=== PATIENT | male | born 1955 | race Caucasian/White ===

== ENCOUNTER 2018-02-16 10:24 | Inpatient (IN) | payer MEDICARE, OTHER ==
[~2018-02-16] VITALS: Ht 175.3 cm; Wt 139.4 kg
[2018-02-16 10:59] LABS: BASOPHILS % (AUTO) 0.3 % (0-1); EOSINOPHILS % (AUTO) 0.3 % (0-6); HEMOGLOBIN 12.4 g/dl (14.0-17.9); LYMPHOCYTES # (AUTO) 1.2 X10'3 (1.1-4.8); LYMPHOCYTES % (AUTO) 17.1 % (21-51); MEAN CORPUSCULAR HEMOGLOBIN 26.4 PG (27.0-31.0); MEAN CORPUSCULAR HGB CONC 32.6 % (33.0-36.5); MEAN PLATELET VOLUME 10.2 FL (7.4-10.4); MONOCYTES # (AUTO) 0.4 X10'3 (0-0.9); MONOCYTES % (AUTO) 6.3 % (2-12); NEUTROPHILS # (AUTO) 5.4 X10'3 (1.8-7.7); PLATELET COUNT 207 X10'3 (140-440); RED BLOOD COUNT 4.69 X10'6 (4.70-6.10); RED CELL DISTRIBUTION WIDTH 20.5 % (11.5-14.5); WHITE BLOOD COUNT 7.1 X10'3 (4.5-11.0)
[2018-02-16 11:09] LABS: PARTIAL THROMBOPLASTIN TIME 25 SECONDS (22-32); PROTHROMBIN TIME 10.7 SECONDS (9.0-12.0)
[2018-02-16 11:14] LABS: ALANINE AMINOTRANSFERASE 35 U/L (12-78); ALBUMIN 3.5 G/DL (3.4-5.0); ALBUMIN/GLOBULIN RATIO 0.9 (1.1-1.5); ALKALINE PHOSPHATASE 118 IU/L (46-116); ANION GAP 8 (8-16); ASPARTATE AMINO TRANSFERASE 21 U/L (10-37); BILIRUBIN,TOTAL 0.5 MG/DL (0.1-1.0); BLOOD UREA NITROGEN 11 MG/DL (7-18); BUN/CREATININE RATIO 15.3 (5.4-32.0); CALCIUM 8.7 MG/DL (8.5-10.1); CHLORIDE 100 MMOL/L (99-107); CREATININE 0.72 MG/DL (0.60-1.10); GLUCOSE 127 MG/DL (70-104); SODIUM 135 MMOL/L (135-145); TOTAL CARBON DIOXIDE 26.7 MMOL/L (24-32); TOTAL PROTEIN 7.2 G/DL (6.4-8.2); eGFR > 90 ML/MIN
[2018-02-16 11:15] LABS: ANISOCYTOSIS 3+; LARGE PLATELETS FEW; MICROCYTOSIS 1+; PLATELET ESTIMATE NORMAL
[2018-02-16 11:16] LABS: ELLIPTOCYTES FEW
[2018-02-16] MEDS ORDERED: furosemide 10 MG/1 ML 10ml inj IV ONE (12:20)
[2018-02-16] MEDS ORDERED: docusate sod 100mg capsule PO PRN (14:30)
[2018-02-16] MEDS ORDERED: acetaminophen 325mg tablet PO PRN ×2 (14:30)
[2018-02-16] MEDS ORDERED: magnesium 1gm/100ml D5W IVPB 100 ML IV PRN (14:30)
[2018-02-16] MEDS ORDERED: ondansetron/PF 4mg/2ml inj IV PRN (14:30)
[2018-02-16] MEDS ORDERED: heparin 10,000 units/1 ML INJ IV ONE (14:30)
[2018-02-16] MEDS ORDERED: mag hydrox/Alum hydrox/simeth 30ml oral suspension PO PRN (14:30)
[2018-02-16] MEDS ORDERED: morphine 2 MG/ML inj. syringe IV PRN ×2 (14:30)
[2018-02-16] MEDS ORDERED: magnesium 4gm in 100ml NS 100 ML IV PRN (14:30)
[2018-02-16] MEDS ORDERED: potassium Cl 20 mEq SR tablet PO PRN ×2 (14:30)
[2018-02-16] MEDS ORDERED: potassium Cl 40MEQ/NS 500ml 500 ML IV PRN ×2 (14:30)
[2018-02-16] MEDS ORDERED: DOCU250C4 PO (16:05)
[2018-02-16] MEDS ORDERED: CARSR60C PO (16:05)
[2018-02-16] MEDS ORDERED: SIMV40TA PO (16:05)
[2018-02-16] MEDS ORDERED: SUCR1TAB PO (16:05)
[2018-02-16] MEDS ORDERED: PANT40TA4 PO (16:05)
[2018-02-16] MEDS ORDERED: OMEG1CAP13 PO (16:05)
[2018-02-16] MEDS ORDERED: POTA10TA10 PO (16:05)
[2018-02-16] MEDS ORDERED: FURO-150 PO (16:05)
[2018-02-16] MEDS ORDERED: FERR324T2 PO (16:05)
[2018-02-16] MEDS ORDERED: LISI-600 PO (16:05)
[2018-02-16] MEDS ORDERED: RANI300C PO (16:05)
[2018-02-16] MEDS ORDERED: ALB0.5UD IH (16:05)
[2018-02-16] MEDS ORDERED: HYDR12.5 PO (16:05)
[2018-02-16 16:57] VITALS: BP 137/56
[2018-02-16 16:57] LABS: INR 1.1 INR; PARTIAL THROMBOPLASTIN TIME 39 SECONDS (22-32); PROTHROMBIN TIME 11.4 SECONDS (9.0-12.0)
[2018-02-16 17:31] LABS: BASOPHILS # (AUTO) 0.1 X10'3 (0-0.2); BASOPHILS % (AUTO) 0.7 % (0-1); EOSINOPHILS % (AUTO) 0.4 % (0-6); HEMOGLOBIN 12.8 g/dl (14.0-17.9); LYMPHOCYTES # (AUTO) 2.4 X10'3 (1.1-4.8); LYMPHOCYTES % (AUTO) 25.9 % (21-51); MEAN CORPUSCULAR HEMOGLOBIN 26.1 PG (27.0-31.0); MEAN CORPUSCULAR HGB CONC 32.7 % (33.0-36.5); MEAN CORPUSCULAR VOLUME 79.7 FL (78-98); MEAN PLATELET VOLUME 10.4 FL (7.4-10.4); MONOCYTES # (AUTO) 0.8 X10'3 (0-0.9); MONOCYTES % (AUTO) 8.1 % (2-12); NEUTROPHILS % (AUTO) 64.9 % (42-75); PLATELET COUNT 210 X10'3 (140-440); WHITE BLOOD COUNT 9.3 X10'3 (4.5-11.0)
[2018-02-16] MEDS: diltiazem SR 60mg capsule (twice daily) PO SCH (17:34)
[2018-02-16 17:54] LABS: ANISOCYTOSIS 3+; ELLIPTOCYTES 1+; HYPOCHROMASIA 1+; LARGE PLATELETS FEW; PLATELET ESTIMATE NORMAL; POIKILOCYTOSIS 1+; POLYCHROMASIA 1+
[2018-02-16 18:00] VITALS: BP 146/49
[2018-02-16] MEDS: sucralfate 1 gm tablet PO SCH (20:04)
[2018-02-16] MEDS: furosemide 10 MG/1 ML 10ml inj IV SCH (20:06)
[2018-02-16] MEDS ORDERED: atorvastatin 20mg tablet PO SCH (21:00)
[2018-02-16] MEDS ORDERED: non-formulary drug (Simvastatin (Zocor) 1 TAB) PO SCH (21:00)
[2018-02-16 22:00] VITALS: BP 127/48
[2018-02-16] MEDS: heparin 10,000 units/1 ML INJ IV PRN (22:20)
[2018-02-17 02:00] VITALS: BP 112/43
[2018-02-17 05:36] LABS: BASOPHILS % (AUTO) 0.3 % (0-1); EOSINOPHILS # (AUTO) 0.2 X10'3 (0-0.9); EOSINOPHILS % (AUTO) 1.7 % (0-6); HEMATOCRIT 38.5 % (42.0-52.0); HEMOGLOBIN 12.7 g/dl (14.0-17.9); LYMPHOCYTES # (AUTO) 2.7 X10'3 (1.1-4.8); LYMPHOCYTES % (AUTO) 28.8 % (21-51); MEAN CORPUSCULAR HEMOGLOBIN 26.2 PG (27.0-31.0); MEAN CORPUSCULAR HGB CONC 32.9 % (33.0-36.5); MEAN CORPUSCULAR VOLUME 79.8 FL (78-98); MEAN PLATELET VOLUME 10.4 FL (7.4-10.4); MONOCYTES # (AUTO) 0.8 X10'3 (0-0.9); MONOCYTES % (AUTO) 8.9 % (2-12); NEUTROPHILS # (AUTO) 5.6 X10'3 (1.8-7.7); NEUTROPHILS % (AUTO) 60.3 % (42-75); PLATELET COUNT 228 X10'3 (140-440); RED BLOOD COUNT 4.83 X10'6 (4.70-6.10); RED CELL DISTRIBUTION WIDTH 20.2 % (11.5-14.5); WHITE BLOOD COUNT 9.3 X10'3 (4.5-11.0)
[2018-02-17 06:00] VITALS: BP 124/57
[2018-02-17 06:16] LABS: ALANINE AMINOTRANSFERASE 34 U/L (12-78); ALBUMIN 3.5 G/DL (3.4-5.0); ALBUMIN/GLOBULIN RATIO 0.9 (1.1-1.5); ALKALINE PHOSPHATASE 126 IU/L (46-116); ANION GAP 8 (8-16); ANISOCYTOSIS 2+; ASPARTATE AMINO TRANSFERASE 30 U/L (10-37); BILIRUBIN,TOTAL 0.7 MG/DL (0.1-1.0); BLOOD UREA NITROGEN 14 MG/DL (7-18); BUN/CREATININE RATIO 17.9 (5.4-32.0); CALCIUM 9.5 MG/DL (8.5-10.1); CHLORIDE 97 MMOL/L (99-107); CHOL/HDL RATIO 5.2 (0.00-4.99); CHOLESTEROL 176 MG/DL (0-200); CREATININE 0.78 MG/DL (0.60-1.10); GLUCOSE 103 MG/DL (70-104); HDL CHOLESTEROL 34 MG/DL (35-60); LARGE PLATELETS FEW; LDL CHOLESTEROL 120 MG/DL (50-100); MAGNESIUM 1.7 MG/DL (1.5-2.4); MICROCYTOSIS 1+; PLATELET ESTIMATE NORMAL; POTASSIUM 3.6 MMOL/L (3.5-5.1); SODIUM 135 MMOL/L (135-145); TOTAL CARBON DIOXIDE 30.4 MMOL/L (24-32); TOTAL PROTEIN 7.5 G/DL (6.4-8.2); TRIGLYCERIDES 139 MG/DL (20-135); eGFR > 90 ML/MIN
[2018-02-17] MEDS: K and/or MAG REPLACEMENT MC SCH (06:40)
[2018-02-17] MEDS: heparin 10,000 units/1 ML INJ IV PRN (06:53)
[2018-02-17] MEDS: furosemide 10 MG/1 ML 10ml inj IV SCH ×2 (07:45→20:03)
[2018-02-17] MEDS: sucralfate 1 gm tablet PO SCH ×2 (07:46→20:03)
[2018-02-17] MEDS: omega-3 acid ethyl esters 1GM capsule PO SCH (07:46)
[2018-02-17] MEDS: diltiazem SR 60mg capsule (twice daily) PO SCH (07:46)
[2018-02-17] MEDS: docusate sod 250mg capsule PO SCH (07:46)
[2018-02-17] MEDS: famotidine 20mg tablet PO SCH (07:46)
[2018-02-17] MEDS: enoxaparin 40mg/0.4ml syringe SUBCUT SCH (07:47)
[2018-02-17] MEDS ORDERED: non-formulary drug (Ranitidine HCl 1 CAP) PO SCH (08:00)
[2018-02-17] MEDS ORDERED: FATTY ACIDS PO SCH (08:00)
[2018-02-17] MEDS ORDERED: OMEGA PO SCH (08:00)
[2018-02-17] MEDS ORDERED: FISH OIL PO SCH (08:00)
[2018-02-17 11:00] VITALS: BP 113/47
[2018-02-17] MEDS ORDERED: nitroGLYCERIN 0.4mg SUBLingual tab SL PRN (14:25)
[2018-02-17] MEDS: aspirin 81mg tablet.DR PO SCH (14:44)
[2018-02-17] MEDS: folic acid 1mg tablet PO SCH (14:44)
[2018-02-17 16:00] VITALS: BP 108/56
[2018-02-17] MEDS: potassium Cl 20 mEq SR tablet PO SCH (16:34)
[2018-02-17 19:00] VITALS: BP 107/43
[2018-02-17] MEDS: thiamine 100mg tablet PO SCH (20:03)
[2018-02-17] MEDS: atorvastatin 20mg tablet PO SCH (20:03)
[2018-02-17 23:00] VITALS: BP 101/41
[2018-02-18] VITALS (14 sets, daily range): BP systolic 108–168; BP diastolic 43–86
[2018-02-18 05:20] LABS: BASOPHILS % (AUTO) 0.5 % (0-1); EOSINOPHILS # (AUTO) 0.1 X10'3 (0-0.9); HEMATOCRIT 34.5 % (42.0-52.0); HEMOGLOBIN 11.4 g/dl (14.0-17.9); LYMPHOCYTES # (AUTO) 2.4 X10'3 (1.1-4.8); LYMPHOCYTES % (AUTO) 32.2 % (21-51); MEAN CORPUSCULAR HEMOGLOBIN 26.3 PG (27.0-31.0); MEAN CORPUSCULAR VOLUME 79.7 FL (78-98); MEAN PLATELET VOLUME 10.4 FL (7.4-10.4); MONOCYTES # (AUTO) 0.8 X10'3 (0-0.9); MONOCYTES % (AUTO) 10.8 % (2-12); NEUTROPHILS % (AUTO) 54.5 % (42-75); PLATELET COUNT 202 X10'3 (140-440); RED BLOOD COUNT 4.33 X10'6 (4.70-6.10); RED CELL DISTRIBUTION WIDTH 20.5 % (11.5-14.5); WHITE BLOOD COUNT 7.4 X10'3 (4.5-11.0)
[2018-02-18 05:31] LABS: ALANINE AMINOTRANSFERASE 32 U/L (12-78); ALBUMIN 3.1 G/DL (3.4-5.0); ALBUMIN/GLOBULIN RATIO 0.9 (1.1-1.5); ALKALINE PHOSPHATASE 102 IU/L (46-116); ANION GAP 7 (8-16); ASPARTATE AMINO TRANSFERASE 23 U/L (10-37); BILIRUBIN,TOTAL 0.6 MG/DL (0.1-1.0); BLOOD UREA NITROGEN 15 MG/DL (7-18); BUN/CREATININE RATIO 20.3 (5.4-32.0); CHLORIDE 100 MMOL/L (99-107); CREATININE 0.74 MG/DL (0.60-1.10); GLUCOSE 89 MG/DL (70-104); MAGNESIUM 1.9 MG/DL (1.5-2.4); POTASSIUM 3.5 MMOL/L (3.5-5.1); SODIUM 137 MMOL/L (135-145); TOTAL CARBON DIOXIDE 30.3 MMOL/L (24-32); TOTAL PROTEIN 6.5 G/DL (6.4-8.2); eGFR > 90 ML/MIN
[2018-02-18 06:57] LABS: ANISOCYTOSIS 3+; PLATELET ESTIMATE NORMAL
[2018-02-18 06:58] LABS: ELLIPTOCYTES 1+
[2018-02-18] MEDS: potassium Cl 20 mEq SR tablet PO SCH ×2 (07:42→17:46)
[2018-02-18] MEDS: famotidine 20mg tablet PO SCH (07:42)
[2018-02-18] MEDS: folic acid 1mg tablet PO SCH (07:42)
[2018-02-18] MEDS: docusate sod 250mg capsule PO SCH (07:42)
[2018-02-18] MEDS: sucralfate 1 gm tablet PO SCH ×2 (07:43→20:50)
[2018-02-18] MEDS: aspirin 81mg tablet.DR PO SCH (07:43)
[2018-02-18] MEDS: diltiazem SR 60mg capsule (twice daily) PO SCH (07:43)
[2018-02-18] MEDS: thiamine 100mg tablet PO SCH ×2 (07:43→20:50)
[2018-02-18] MEDS: furosemide 10 MG/1 ML 10ml inj IV SCH ×2 (07:44→20:50)
[2018-02-18] MEDS: omega-3 acid ethyl esters 1GM capsule PO SCH (07:59)
[2018-02-18] MEDS: enoxaparin 40mg/0.4ml syringe SUBCUT SCH (08:00)
[2018-02-18] MEDS: K and/or MAG REPLACEMENT MC SCH (08:00)
[2018-02-18] MEDS: ipratropium/albuterol 3ml nebule NEB PRN ×2 (11:33→15:27)
[2018-02-18] MEDS ORDERED: LIDOcaine 1% 30ml preserv. free vial ONE (17:50)
[2018-02-18] MEDS ORDERED: iohexol 350MG/ML 100ml bottle IV ONE (17:50)
[2018-02-18] MEDS ORDERED: heparin 1,000unit/ml 10ml vial 10 ML ONE (17:57)
[2018-02-18] MEDS ORDERED: verapamil 2.5 mg/ml inj IV ONE (17:57)
[2018-02-18] MEDS ORDERED: nitroGLYCERIN-Tridil 50MG/D5W 250 ML IV ONE (17:57)
[2018-02-18] MEDS ORDERED: fentaNYL/PF 50MCG/1 ML 2ML syringe ONE (18:11)
[2018-02-18] MEDS ORDERED: midazolam 2 mg/2 ml injection ONE (18:12)
[2018-02-18] MEDS ORDERED: HYDROcodone/acetaminophen 5mg/325mg tablet PO PRN (19:25)
[2018-02-18] MEDS ORDERED: proCHLORperazine 10 MG/2 ml inj IV PRN (19:25)
[2018-02-18] MEDS ORDERED: HYDROcodone/acetaminophen 10/325mg tab PO PRN (19:25)
[2018-02-18] MEDS: atorvastatin 20mg tablet PO SCH (20:50)
[2018-02-19 03:00] VITALS: BP 119/43
[2018-02-19] MEDS ORDERED: MESSAGE TO NURSING PO ONE ×2 (05:30→07:05)
[2018-02-19 05:44] LABS: BASOPHILS % (AUTO) 0.5 % (0-1); EOSINOPHILS # (AUTO) 0.1 X10'3 (0-0.9); EOSINOPHILS % (AUTO) 1.9 % (0-6); HEMATOCRIT 33.7 % (42.0-52.0); HEMOGLOBIN 10.9 g/dl (14.0-17.9); LYMPHOCYTES # (AUTO) 2.5 X10'3 (1.1-4.8); LYMPHOCYTES % (AUTO) 34.5 % (21-51); MEAN CORPUSCULAR HEMOGLOBIN 25.7 PG (27.0-31.0); MEAN CORPUSCULAR HGB CONC 32.3 % (33.0-36.5); MEAN CORPUSCULAR VOLUME 79.6 FL (78-98); MEAN PLATELET VOLUME 9.9 FL (7.4-10.4); MONOCYTES # (AUTO) 0.8 X10'3 (0-0.9); NEUTROPHILS # (AUTO) 3.8 X10'3 (1.8-7.7); NEUTROPHILS % (AUTO) 52.1 % (42-75); PLATELET COUNT 197 X10'3 (140-440); RED BLOOD COUNT 4.23 X10'6 (4.70-6.10); RED CELL DISTRIBUTION WIDTH 20.1 % (11.5-14.5); WHITE BLOOD COUNT 7.3 X10'3 (4.5-11.0)
[2018-02-19 06:00] VITALS: BP 158/50
[2018-02-19 06:00] LABS: ALANINE AMINOTRANSFERASE 33 U/L (12-78); ALBUMIN 3.1 G/DL (3.4-5.0); ALBUMIN/GLOBULIN RATIO 0.9 (1.1-1.5); ALKALINE PHOSPHATASE 99 IU/L (46-116); ANION GAP 7 (8-16); ASPARTATE AMINO TRANSFERASE 26 U/L (10-37); BILIRUBIN,TOTAL 0.4 MG/DL (0.1-1.0); BLOOD UREA NITROGEN 17 MG/DL (7-18); BUN/CREATININE RATIO 22.4 (5.4-32.0); CALCIUM 8.9 MG/DL (8.5-10.1); CHLORIDE 102 MMOL/L (99-107); CHOL/HDL RATIO 4.8 (0.00-4.99); CHOLESTEROL 135 MG/DL (0-200); CREATININE 0.76 MG/DL (0.60-1.10); GLUCOSE 91 MG/DL (70-104); HDL CHOLESTEROL 28 MG/DL (35-60); LDL CHOLESTEROL 92 MG/DL (50-100); MAGNESIUM 1.9 MG/DL (1.5-2.4); POTASSIUM 3.8 MMOL/L (3.5-5.1); SODIUM 138 MMOL/L (135-145); TOTAL CARBON DIOXIDE 29.5 MMOL/L (24-32); TOTAL PROTEIN 6.4 G/DL (6.4-8.2); TRIGLYCERIDES 100 MG/DL (20-135); eGFR > 90 ML/MIN
[2018-02-19] MEDS ORDERED: dextrose 50%-water 50ml dispensing syringe IV PRN (07:05)
[2018-02-19 07:36] LABS: ANISOCYTOSIS 2+; PLATELET ESTIMATE NORMAL
[2018-02-19 07:37] LABS: ELLIPTOCYTES 2+; MICROCYTOSIS 1+
[2018-02-19 07:38] LABS: POIKILOCYTOSIS FEW
[2018-02-19 07:47] LABS: PARTIAL THROMBOPLASTIN TIME 26 SECONDS (22-32); PROTHROMBIN TIME 10.6 SECONDS (9.0-12.0)
[2018-02-19] MEDS: omega-3 acid ethyl esters 1GM capsule PO SCH (07:51)
[2018-02-19] MEDS: folic acid 1mg tablet PO SCH (07:51)
[2018-02-19] MEDS: aspirin 81mg tablet.DR PO SCH (07:51)
[2018-02-19] MEDS: sucralfate 1 gm tablet PO SCH ×2 (07:51→20:43)
[2018-02-19] MEDS: docusate sod 250mg capsule PO SCH (07:51)
[2018-02-19] MEDS: diltiazem SR 60mg capsule (twice daily) PO SCH (07:52)
[2018-02-19] MEDS: potassium Cl 20 mEq SR tablet PO SCH ×2 (07:52→17:43)
[2018-02-19] MEDS: famotidine 20mg tablet PO SCH (07:52)
[2018-02-19] MEDS: thiamine 100mg tablet PO SCH ×2 (07:52→20:43)
[2018-02-19] MEDS: furosemide 10 MG/1 ML 10ml inj IV SCH ×2 (07:54→20:43)
[2018-02-19] MEDS: K and/or MAG REPLACEMENT MC SCH (08:00)
[2018-02-19] MEDS: insulin Lispro (HumaLOG) vial - multi-dose SQ SCH ×3 (09:00→18:00)
[2018-02-19 11:00] VITALS: BP 126/49
[2018-02-19 15:00] VITALS: BP 141/78
[2018-02-19 18:20] LABS: ABG BASE EXCESS 1.3 mmol/L (-2.0-3.0); ABG HCO3 25.6 mmol/L (22.0-26.0); ABG PCO2 (T) 39.7 mmHg (35.0-48.0); ABG PH (T) 7.428 (7.350-7.450); FCOHb 0.3 % (0.5-1.5); FMetHb 0.2 % (0.3-1.12); FO2Hb 93.5 % (94-100); TOTAL HEMOGLOBIN 12.2 G/dl (14.0-18.0)
[2018-02-19 19:00] VITALS: BP 137/62
[2018-02-19] MEDS: atorvastatin 20mg tablet PO SCH (20:43)
[2018-02-19 23:00] VITALS: BP 124/40
[2018-02-20] VITALS (18 sets, daily range): BP systolic 90–130; BP diastolic 53–67
[2018-02-20] MEDS ORDERED: MESSAGE TO NURSING PO ONE ×3 (01:30→05:30)
[2018-02-20] MEDS ORDERED: ceFAZolin inj. 3,000 MG in normal saline 100ml IV soln 100 ML IV ONE (05:30)
[2018-02-20] MEDS ORDERED: ringers solution, lacted 1,000 ML IV SCH (05:30)
[2018-02-20] MEDS ORDERED: mupirocin 2% nasal ointment 1gm UD NS SCH ×2 (06:00→08:00)
[2018-02-20] MEDS ORDERED: magnesium sulf 1 GM/2 ML ONE (06:00)
[2018-02-20] MEDS ORDERED: LIDOcaine 2% (20 mg/ml) 5ml cardiac syringe ONE (06:00)
[2018-02-20] MEDS ORDERED: aminophylline 250mg/10ml inj. IV ONE ×2 (06:00→06:59)
[2018-02-20] MEDS ORDERED: heparin 10,000 units/1 ML INJ ONE (06:00)
[2018-02-20] MEDS ORDERED: LORazepam 2 mg/ml vial IV ONE (06:00)
[2018-02-20] MEDS ORDERED: calcium chloride 100 MG/1 ML inj IV ONE (06:00)
[2018-02-20] MEDS ORDERED: potassium Cl 2 mEq/ml inj IV ONE (06:00)
[2018-02-20] MEDS ORDERED: phenylephrine 10mg/ml inj. ONE (06:00)
[2018-02-20] MEDS ORDERED: heparin 1,000 units/ml 10ml inj ONE (06:00)
[2018-02-20] MEDS ORDERED: famotidine 20mg tablet PO ONE (06:00)
[2018-02-20] MEDS ORDERED: albumin (human) 25% 100 ML IV solution IV ONE (06:00)
[2018-02-20] MEDS ORDERED: sodium bicarbonate (8.4%) 1 mEq/ml syringe ONE (06:00)
[2018-02-20 06:11] LABS: BASOPHILS % (AUTO) 0.4 % (0-1); EOSINOPHILS # (AUTO) 0.1 X10'3 (0-0.9); EOSINOPHILS % (AUTO) 1.3 % (0-6); HEMATOCRIT 35.4 % (42.0-52.0); HEMOGLOBIN 11.8 g/dl (14.0-17.9); LYMPHOCYTES # (AUTO) 1.8 X10'3 (1.1-4.8); MEAN CORPUSCULAR HEMOGLOBIN 26.3 PG (27.0-31.0); MEAN CORPUSCULAR HGB CONC 33.2 % (33.0-36.5); MEAN CORPUSCULAR VOLUME 79.3 FL (78-98); MEAN PLATELET VOLUME 10.3 FL (7.4-10.4); MONOCYTES # (AUTO) 0.7 X10'3 (0-0.9); MONOCYTES % (AUTO) 9.5 % (2-12); NEUTROPHILS # (AUTO) 4.6 X10'3 (1.8-7.7); NEUTROPHILS % (AUTO) 63.8 % (42-75); PLATELET COUNT 211 X10'3 (140-440); RED BLOOD COUNT 4.46 X10'6 (4.70-6.10); RED CELL DISTRIBUTION WIDTH 19.5 % (11.5-14.5); WHITE BLOOD COUNT 7.2 X10'3 (4.5-11.0)
[2018-02-20 06:22] LABS: INR 1.1 INR; PARTIAL THROMBOPLASTIN TIME 26 SECONDS (22-32); PROTHROMBIN TIME 10.9 SECONDS (9.0-12.0)
[2018-02-20 06:40] LABS: ALANINE AMINOTRANSFERASE 44 U/L (12-78); ALBUMIN 3.4 G/DL (3.4-5.0); ALBUMIN/GLOBULIN RATIO 0.9 (1.1-1.5); ALKALINE PHOSPHATASE 115 IU/L (46-116); ANION GAP 8 (8-16); ASPARTATE AMINO TRANSFERASE 37 U/L (10-37); BILIRUBIN,TOTAL 0.5 MG/DL (0.1-1.0); BLOOD UREA NITROGEN 14 MG/DL (7-18); BUN/CREATININE RATIO 19.2 (5.4-32.0); CHLORIDE 100 MMOL/L (99-107); CREATININE 0.73 MG/DL (0.60-1.10); GLUCOSE 98 MG/DL (70-104); MAGNESIUM 1.7 MG/DL (1.5-2.4); POTASSIUM 3.9 MMOL/L (3.5-5.1); SODIUM 136 MMOL/L (135-145); TOTAL CARBON DIOXIDE 27.8 MMOL/L (24-32); TOTAL PROTEIN 7.1 G/DL (6.4-8.2); eGFR > 90 ML/MIN
[2018-02-20] MEDS ORDERED: metoprolol tartrate 12.5mg (1/2 tablet) PO ONE (06:50)
[2018-02-20] MEDS ORDERED: SUFENTANIL CITRATE 50 MCG/ML 2ml ampule IV ONE (06:56)
[2018-02-20] MEDS ORDERED: MIDAZolam 1mg/ml 10ml vial ONE (06:56)
[2018-02-20] MEDS ORDERED: rocuronium 10mg/ml inj IV ONE ×2 (06:59)
[2018-02-20] MEDS ORDERED: protamine sulf. 10mg/ml inj. IV ONE (06:59)
[2018-02-20] MEDS ORDERED: sevoflurane 250ml liquid IH ONE (06:59)
[2018-02-20] MEDS ORDERED: propofol inj 20 ML IV ONE (07:02)
[2018-02-20 07:21] LABS: PLATELET ESTIMATE NORMAL
[2018-02-20 07:22] LABS: ANISOCYTOSIS 2+; ELLIPTOCYTES 1+
[2018-02-20 08:00] LABS: ABG BASE EXCESS VENOUS -0.3 mmol/L; ABG PCO2 VENOUS 43.6 mmHg; ABG PO2 VENOUS 63.7 mmHg; CL (ABG) 102 mmol/L (99-107); FCOHb VENOUS 0.3 %; FHHb VENOUS 9.3 %; FMetHb VENOUS 0.5 %; FO2Hb VENOUS 89.9 %; GLUCOSE (ABG) 105 mg/dl (70-105); IONIZED CA (ABG) 1.14 mmol/L (1.03-1.32); K (ABG) 3.6 mmol/L (3.3-5.1); NA (ABG) 132 mmol/L (135-145)
[2018-02-20] MEDS: thiamine 100mg tablet PO SCH ×2 (08:00→20:00)
[2018-02-20] MEDS: folic acid 1mg tablet PO SCH (08:00)
[2018-02-20 08:35] LABS: ABG BASE EXCESS 0.2 mmol/L (-2.0-3.0); ABG HCO3 26.8 mmol/L (22.0-26.0); ABG OXYGEN SATURATION 71.1 % (95-98); ABG PCO2 52.9 mmHg (35.0-45.0); ABG PH 7.323 (7.350-7.450); ABG PO2 41.2 mmHg (60.0-100.0); CL (ABG) 102 mmol/L (99-107); FCOHb 0.7 % (0.5-1.5); FMetHb 0.3 % (0.3-1.12); FO2Hb 70.4 % (94-100); GLUCOSE (ABG) 107 mg/dl (70-105); IONIZED CA (ABG) 1.16 mmol/L (1.03-1.32); K (ABG) 3.9 mmol/L (3.3-5.1); NA (ABG) 133 mmol/L (135-145); TOTAL HEMOGLOBIN 11.1 G/dl (14.0-18.0)
[2018-02-20] MEDS ORDERED: pancuronium br 1mg/ml inj IV ONE (08:36)
[2018-02-20 09:00] LABS: ABG BASE EXCESS -0.6 mmol/L (-2.0-3.0); ABG HCO3 24.9 mmol/L (22.0-26.0); ABG OXYGEN SATURATION 99.1 % (95-98); ABG PCO2 44.8 mmHg (35.0-45.0); ABG PH 7.363 (7.350-7.450); ABG PO2 173.3 mmHg (60.0-100.0); CL (ABG) 99 mmol/L (99-107); FCOHb 0.5 % (0.5-1.5); FMetHb 0.2 % (0.3-1.12); FO2Hb 98.4 % (94-100); GLUCOSE (ABG) 118 mg/dl (70-105); IONIZED CA (ABG) 1.07 mmol/L (1.03-1.32); K (ABG) 3.7 mmol/L (3.3-5.1); NA (ABG) 130 mmol/L (135-145); TOTAL HEMOGLOBIN 9.6 G/dl (14.0-18.0)
[2018-02-20 09:11] LABS: ABG BASE EXCESS -1.3 mmol/L (-2.0-3.0); ABG HCO3 25.2 mmol/L (22.0-26.0); ABG PCO2 50.7 mmHg (35.0-45.0); ABG PH 7.315 (7.350-7.450); ABG PO2 419.6 mmHg (60.0-100.0); CL (ABG) 99 mmol/L (99-107); FCOHb 0.8 % (0.5-1.5); FMetHb 0.1 % (0.3-1.12); FO2Hb 99.1 % (94-100); GLUCOSE (ABG) 133 mg/dl (70-105); IONIZED CA (ABG) 1.13 mmol/L (1.03-1.32); K (ABG) 4.6 mmol/L (3.3-5.1); NA (ABG) 132 mmol/L (135-145); TOTAL HEMOGLOBIN 10.9 G/dl (14.0-18.0)
[2018-02-20 09:26] LABS: ABG BASE EXCESS VENOUS -1.1 mmol/L; ABG PO2 VENOUS 54.7 mmHg; CL (ABG) 99 mmol/L (99-107); FHHb VENOUS 15.4 %; FMetHb VENOUS 0.1 %; FO2Hb VENOUS 83.5 %; GLUCOSE (ABG) 140 mg/dl (70-105); IONIZED CA (ABG) 1.12 mmol/L (1.03-1.32); K (ABG) 4.7 mmol/L (3.3-5.1); NA (ABG) 131 mmol/L (135-145); TOTAL HEMOGLOBIN 10.9 G/dl (14.0-18.0)
[2018-02-20 09:40] LABS: ABG OXYGEN SATURATION 99.8 % (95-98); ABG PCO2 41.3 mmHg (35.0-45.0); ABG PH 7.383 (7.350-7.450); ABG PO2 308.4 mmHg (60.0-100.0); CL (ABG) 100 mmol/L (99-107); FCOHb 0.7 % (0.5-1.5); FO2Hb 99.1 % (94-100); GLUCOSE (ABG) 144 mg/dl (70-105); K (ABG) 4.6 mmol/L (3.3-5.1); NA (ABG) 130 mmol/L (135-145); TOTAL HEMOGLOBIN 10.9 G/dl (14.0-18.0)
[2018-02-20 10:11] LABS: ABG HCO3 28.2 mmol/L (22.0-26.0); ABG OXYGEN SATURATION 99.4 % (95-98); ABG PCO2 45.9 mmHg (35.0-45.0); ABG PH 7.406 (7.350-7.450); CL (ABG) 98 mmol/L (99-107); FCOHb 0.6 % (0.5-1.5); FMetHb 0.1 % (0.3-1.12); FO2Hb 98.7 % (94-100); GLUCOSE (ABG) 147 mg/dl (70-105); IONIZED CA (ABG) 1.37 mmol/L (1.03-1.32); K (ABG) 4.6 mmol/L (3.3-5.1); NA (ABG) 128 mmol/L (135-145); TOTAL HEMOGLOBIN 9.7 G/dl (14.0-18.0)
[2018-02-20 10:45] LABS: ABG BASE EXCESS VENOUS 1.8 mmol/L; ABG HCO3 VENOUS 27.6 mmol/L; ABG PCO2 VENOUS 49.2 mmHg; ABG PO2 VENOUS 51.4 mmHg; CL (ABG) 101 mmol/L (99-107); FCOHb VENOUS 0.6 %; FHHb VENOUS 16.7 %; FMetHb VENOUS 0.5 %; FO2Hb VENOUS 82.2 %; GLUCOSE (ABG) 133 mg/dl (70-105); IONIZED CA (ABG) 1.21 mmol/L (1.03-1.32); K (ABG) 4.5 mmol/L (3.3-5.1); NA (ABG) 131 mmol/L (135-145); TOTAL HEMOGLOBIN 10.6 G/dl (14.0-18.0)
[2018-02-20 11:49] LABS: HEMATOCRIT 36.3 % (42.0-52.0); MEAN CORPUSCULAR HEMOGLOBIN 26.3 PG (27.0-31.0); MEAN CORPUSCULAR HGB CONC 33.1 % (33.0-36.5); MEAN CORPUSCULAR VOLUME 79.5 FL (78-98); MEAN PLATELET VOLUME 10.3 FL (7.4-10.4); PLATELET COUNT 173 X10'3 (140-440); RED BLOOD COUNT 4.57 X10'6 (4.70-6.10); RED CELL DISTRIBUTION WIDTH 20.2 % (11.5-14.5); WHITE BLOOD COUNT 15.8 X10'3 (4.5-11.0)
[2018-02-20] MEDS ORDERED: DOPamine 400mg/D5W 250ml 250 ML IV PRN (11:54)
[2018-02-20] MEDS ORDERED: niCARDipine/sod cl 20mg/200ml 200 ML IV PRN (11:54)
[2018-02-20] MEDS ORDERED: nitroGLYCERIN-Tridil 50MG/D5W 250 ML IV PRN (11:54)
[2018-02-20] MEDS ORDERED: magnesium 1gm/100ml D5W IVPB 100 ML IV PRN (11:55)
[2018-02-20] MEDS ORDERED: HYDROcodone/acetaminophen 10/325mg tab PO PRN (11:55)
[2018-02-20] MEDS ORDERED: morphine 4 MG/ML inj SYRINge IV PRN (11:55)
[2018-02-20] MEDS ORDERED: metoclopramide 5 mg/ml inj IV PRN (11:55)
[2018-02-20] MEDS ORDERED: acetaminophen 325mg tablet PO PRN (11:55)
[2018-02-20] MEDS ORDERED: magnesium 4gm in 100ml NS 100 ML IV PRN (11:55)
[2018-02-20] MEDS ORDERED: normal saline 250ml IV soln 250 ML IV PRN (11:55)
[2018-02-20] MEDS ORDERED: dextrose 50%-water 50ml dispensing syringe IV PRN (11:55)
[2018-02-20] MEDS ORDERED: Neutra Phos packet PO PRN (11:55)
[2018-02-20] MEDS ORDERED: sodium phosphate inj. 15 MMOL in dextrose 5%-water 150 ML IV PRN (11:55)
[2018-02-20] MEDS ORDERED: magnesium hydroxide 30ml (MOM) UD suspension PO PRN (11:55)
[2018-02-20] MEDS ORDERED: insulin regular, human inj. 100 UNITS in normal saline 100ml IV soln 100 ML IV SCH ×2 (11:55)
[2018-02-20] MEDS ORDERED: ondansetron/PF 4mg/2ml inj IV PRN (11:55)
[2018-02-20] MEDS ORDERED: sodium phosphate inj. 30 MMOL in dextrose 5%-water 250 ML IV PRN (11:55)
[2018-02-20] MEDS ORDERED: potassium Cl 20mEq/100mL bag 100 ML IV PRN ×2 (11:55)
[2018-02-20 11:59] LABS: INR 1.2 INR; PARTIAL THROMBOPLASTIN TIME 25 SECONDS (22-32)
[2018-02-20 12:06] LABS: ABG BASE EXCESS -3.7 mmol/L (-2.0-3.0); ABG HCO3 21.5 mmol/L (22.0-26.0); ABG OXYGEN SATURATION 90.4 % (95-98); ABG PCO2 (T) 39.1 mmHg (35.0-48.0); ABG PH (T) 7.356 (7.350-7.450); FCOHb 0.4 % (0.5-1.5); FMetHb 0.2 % (0.3-1.12); FO2Hb 89.9 % (94-100); MINUTE VOLUME 8 L/min; PATIENT TEMPERATURE 36.9; PEEP 8 cm H2O; RESPIRATORY RATE 12 b/min; TIDAL VOLUME 700 mL; TOTAL HEMOGLOBIN 12.6 G/dl (14.0-18.0)
[2018-02-20 12:12] LABS: BASOPHILS % (AUTO) 0.1 % (0-1); EOSINOPHILS # (AUTO) 0.1 X10'3 (0-0.9); HEMATOCRIT 35.6 % (42.0-52.0); HEMOGLOBIN 11.7 g/dl (14.0-17.9); LYMPHOCYTES # (AUTO) 0.6 X10'3 (1.1-4.8); LYMPHOCYTES % (AUTO) 4.2 % (21-51); MEAN CORPUSCULAR HEMOGLOBIN 26.1 PG (27.0-31.0); MEAN CORPUSCULAR HGB CONC 32.8 % (33.0-36.5); MEAN CORPUSCULAR VOLUME 79.6 FL (78-98); MEAN PLATELET VOLUME 9.9 FL (7.4-10.4); MONOCYTES # (AUTO) 0.4 X10'3 (0-0.9); MONOCYTES % (AUTO) 3.2 % (2-12); NEUTROPHILS # (AUTO) 12.6 X10'3 (1.8-7.7); NEUTROPHILS % (AUTO) 91.5 % (42-75); PLATELET COUNT 166 X10'3 (140-440); RED BLOOD COUNT 4.48 X10'6 (4.70-6.10); WHITE BLOOD COUNT 13.8 X10'3 (4.5-11.0)
[2018-02-20 12:22] LABS: INR 1.1 INR; PARTIAL THROMBOPLASTIN TIME 24 SECONDS (22-32); PROTHROMBIN TIME 11.8 SECONDS (9.0-12.0)
[2018-02-20 12:26] LABS: ALANINE AMINOTRANSFERASE 43 U/L (12-78); ALBUMIN 2.9 G/DL (3.4-5.0); ALBUMIN/GLOBULIN RATIO 1.1 (1.1-1.5); ALKALINE PHOSPHATASE 94 IU/L (46-116); ANION GAP 9 (8-16); ASPARTATE AMINO TRANSFERASE 58 U/L (10-37); BILIRUBIN,TOTAL 0.6 MG/DL (0.1-1.0); BLOOD UREA NITROGEN 16 MG/DL (7-18); BUN/CREATININE RATIO 21.1 (5.4-32.0); CALCIUM 8.2 MG/DL (8.5-10.1); CHLORIDE 104 MMOL/L (99-107); CREATININE 0.76 MG/DL (0.60-1.10); GLUCOSE 136 MG/DL (70-104); MAGNESIUM 2.4 MG/DL (1.5-2.4); PHOSPHORUS 3.2 MG/DL (2.3-4.5); SODIUM 138 MMOL/L (135-145); TOTAL CARBON DIOXIDE 24.7 MMOL/L (24-32); TOTAL PROTEIN 5.6 G/DL (6.4-8.2); eGFR > 90 ML/MIN
[2018-02-20 12:27] LABS: POTASSIUM 4.1 MMOL/L (3.5-5.1)
[2018-02-20] MEDS: insulin Lispro (HumaLOG) vial - multi-dose SQ SCH ×2 (13:00→17:29)
[2018-02-20] MEDS: sodium chloride 0.45% 1,000 ML IV SCH (13:08)
[2018-02-20] MEDS: insulin regular, human inj. 100 UNITS in normal saline 100ml IV soln 100 ML IV SCH ×4 (13:14→15:19)
[2018-02-20] MEDS: albumin (Human) 5% 250ml 250 ML IV PRN ×2 (13:38→17:29)
[2018-02-20] MEDS: morphine 4 MG/ML inj SYRINge IV PRN ×5 (13:56→21:10)
[2018-02-20] MEDS: cefazolin/dext.iso 2gm/100ml 100 ML IV SCH (15:47)
[2018-02-20] MEDS ORDERED: cefazolin/dext.iso 2gm/50ml 50 ML IV SCH (16:00)
[2018-02-20] MEDS: magnesium 2GM in 50ml NS 50 ML IV PRN (16:11)
[2018-02-20 17:39] LABS: BASOPHILS % (AUTO) 0.1 % (0-1); EOSINOPHILS % (AUTO) 0 % (0-6); HEMATOCRIT 33.5 % (42.0-52.0); HEMOGLOBIN 10.9 g/dl (14.0-17.9); LYMPHOCYTES # (AUTO) 0.5 X10'3 (1.1-4.8); LYMPHOCYTES % (AUTO) 4.9 % (21-51); MEAN CORPUSCULAR HEMOGLOBIN 25.9 PG (27.0-31.0); MEAN CORPUSCULAR HGB CONC 32.6 % (33.0-36.5); MEAN CORPUSCULAR VOLUME 79.4 FL (78-98); MEAN PLATELET VOLUME 10.2 FL (7.4-10.4); MONOCYTES # (AUTO) 0.2 X10'3 (0-0.9); MONOCYTES % (AUTO) 2.1 % (2-12); NEUTROPHILS # (AUTO) 10.2 X10'3 (1.8-7.7); NEUTROPHILS % (AUTO) 92.9 % (42-75); PLATELET COUNT 169 X10'3 (140-440); RED BLOOD COUNT 4.22 X10'6 (4.70-6.10); RED CELL DISTRIBUTION WIDTH 19.9 % (11.5-14.5)
[2018-02-20 17:47] LABS: ALBUMIN 3.2 G/DL (3.4-5.0); ANION GAP 8 (8-16); BLOOD UREA NITROGEN 20 MG/DL (7-18); BUN/CREATININE RATIO 25.3 (5.4-32.0); CALCIUM 8.3 MG/DL (8.5-10.1); CHLORIDE 107 MMOL/L (99-107); CREATININE 0.79 MG/DL (0.60-1.10); GLUCOSE 140 MG/DL (70-104); POTASSIUM 4.3 MMOL/L (3.5-5.1); SODIUM 141 MMOL/L (135-145); TOTAL CARBON DIOXIDE 25.6 MMOL/L (24-32); eGFR > 90 ML/MIN
[2018-02-20 17:56] LABS: ANISOCYTOSIS 2+; ELLIPTOCYTES 1+; PLATELET ESTIMATE NORMAL
[2018-02-20] MEDS: docusate sod 100mg capsule PO SCH (20:00)
[2018-02-20] MEDS: vancomycin/NS 1 GM ADD-VANTAGE 250 ML IV SCH (20:41)
[2018-02-20] MEDS: mupirocin 2% nasal ointment 1gm UD NS SCH (20:42)
[2018-02-21] VITALS (24 sets, daily range): BP systolic 109–151; BP diastolic 53–79
[2018-02-21 00:51] LABS: ABG BASE EXCESS -4.2 mmol/L (-2.0-3.0); ABG OXYGEN SATURATION 93.5 % (95-98); ABG PCO2 (T) 33.3 mmHg (35.0-48.0); ABG PH (T) 7.396 (7.350-7.450); ABG PO2 (T) 69.4 mmHg (83-108); FCOHb 0.3 % (0.5-1.5); FMetHb 0.1 % (0.3-1.12); FO2Hb 93.1 % (94-100); MINUTE VOLUME 12 L/min; PATIENT TEMPERATURE 36.7; PEEP 5 cm H2O; RESPIRATORY RATE 0 b/min; RESPIRATORY RATE (OBSERVED) 13 b/min; TIDAL VOLUME 620 mL; TOTAL HEMOGLOBIN 11.3 G/dl (14.0-18.0)
[2018-02-21] MEDS: morphine 4 MG/ML inj SYRINge IV PRN (01:31)
[2018-02-21 03:47] LABS: BASOPHILS % (AUTO) 0 % (0-1); EOSINOPHILS % (AUTO) 0 % (0-6); HEMATOCRIT 31.2 % (42.0-52.0); HEMOGLOBIN 10.2 g/dl (14.0-17.9); LYMPHOCYTES # (AUTO) 0.7 X10'3 (1.1-4.8); LYMPHOCYTES % (AUTO) 7.1 % (21-51); MEAN CORPUSCULAR HEMOGLOBIN 25.9 PG (27.0-31.0); MEAN CORPUSCULAR HGB CONC 32.7 % (33.0-36.5); MEAN CORPUSCULAR VOLUME 79.2 FL (78-98); MEAN PLATELET VOLUME 10.7 FL (7.4-10.4); MONOCYTES # (AUTO) 0.5 X10'3 (0-0.9); MONOCYTES % (AUTO) 5.2 % (2-12); NEUTROPHILS # (AUTO) 8.8 X10'3 (1.8-7.7); NEUTROPHILS % (AUTO) 87.7 % (42-75); PLATELET COUNT 162 X10'3 (140-440); RED BLOOD COUNT 3.94 X10'6 (4.70-6.10); RED CELL DISTRIBUTION WIDTH 20.7 % (11.5-14.5)
[2018-02-21 03:56] LABS: INR 1.1 INR; PARTIAL THROMBOPLASTIN TIME 22 SECONDS (22-32); PROTHROMBIN TIME 10.9 SECONDS (9.0-12.0)
[2018-02-21] MEDS: HYDROcodone/acetaminophen 10/325mg tab PO PRN ×3 (04:09→15:42)
[2018-02-21 04:18] LABS: ALANINE AMINOTRANSFERASE 36 U/L (12-78); ALBUMIN 3.3 G/DL (3.4-5.0); ALBUMIN/GLOBULIN RATIO 1.2 (1.1-1.5); ALKALINE PHOSPHATASE 90 IU/L (46-116); ANION GAP 10 (8-16); ASPARTATE AMINO TRANSFERASE 49 U/L (10-37); BILIRUBIN,TOTAL 0.3 MG/DL (0.1-1.0); BLOOD UREA NITROGEN 21 MG/DL (7-18); BUN/CREATININE RATIO 27.6 (5.4-32.0); CALCIUM 8.5 MG/DL (8.5-10.1); CHLORIDE 106 MMOL/L (99-107); CREATININE 0.76 MG/DL (0.60-1.10); GLUCOSE 155 MG/DL (70-104); MAGNESIUM 2.2 MG/DL (1.5-2.4); PHOSPHORUS 4.7 MG/DL (2.3-4.5); POTASSIUM 3.9 MMOL/L (3.5-5.1); SODIUM 140 MMOL/L (135-145); TOTAL CARBON DIOXIDE 23.8 MMOL/L (24-32); eGFR > 90 ML/MIN
[2018-02-21] MEDS: potassium Cl 20mEq/100mL bag 100 ML IV PRN ×2 (05:18→08:20)
[2018-02-21] MEDS ORDERED: metoprolol tartrate 12.5mg (1/2 tablet) PO SCH (08:00)
[2018-02-21] MEDS ORDERED: atorvastatin 10mg tablet PO SCH (08:00)
[2018-02-21] MEDS: pantoprazole 40mg Tablet.DR PO SCH (08:12)
[2018-02-21] MEDS: thiamine 100mg tablet PO SCH ×2 (08:12→20:29)
[2018-02-21] MEDS: docusate sod 100mg capsule PO SCH ×2 (08:12→20:29)
[2018-02-21] MEDS: folic acid 1mg tablet PO SCH (08:12)
[2018-02-21] MEDS: aspirin 325mg tablet, delayed-release (Ecotrin) PO SCH (08:12)
[2018-02-21] MEDS: vancomycin/NS 1 GM ADD-VANTAGE 250 ML IV SCH ×2 (08:20→20:28)
[2018-02-21] MEDS: cefazolin/dext.iso 2gm/100ml 100 ML IV SCH ×3 (08:20→16:37)
[2018-02-21] MEDS: mupirocin 2% nasal ointment 1gm UD NS SCH ×2 (08:21→20:28)
[2018-02-21] MEDS: magnesium 2GM in 50ml NS 50 ML IV PRN (08:31)
[2018-02-21] MEDS: insulin Lispro (HumaLOG) vial - multi-dose SQ SCH ×2 (09:00→13:00)
[2018-02-21] MEDS ORDERED: furosemide 40mg/4ml inj IV ONE (11:05)
[2018-02-21] MEDS: metoprolol tartrate 25mg tablet PO SCH (20:29)
[2018-02-21] MEDS: lisinopril 5mg tablet PO SCH (21:14)
[2018-02-22] VITALS (24 sets, daily range): BP systolic 98–155; BP diastolic 38–88
[2018-02-22] MEDS: cefazolin/dext.iso 2gm/100ml 100 ML IV SCH (00:10)
[2018-02-22 04:14] LABS: BASOPHILS % (AUTO) 0.2 % (0-1); EOSINOPHILS % (AUTO) 0 % (0-6); HEMATOCRIT 27.6 % (42.0-52.0); HEMOGLOBIN 8.8 g/dl (14.0-17.9); LYMPHOCYTES # (AUTO) 1.6 X10'3 (1.1-4.8); LYMPHOCYTES % (AUTO) 10.7 % (21-51); MEAN CORPUSCULAR HEMOGLOBIN 25.8 PG (27.0-31.0); MEAN CORPUSCULAR VOLUME 80.5 FL (78-98); MEAN PLATELET VOLUME 10.7 FL (7.4-10.4); MONOCYTES # (AUTO) 1.3 X10'3 (0-0.9); NEUTROPHILS # (AUTO) 11.7 X10'3 (1.8-7.7); NEUTROPHILS % (AUTO) 80.1 % (42-75); PLATELET COUNT 169 X10'3 (140-440); RED BLOOD COUNT 3.43 X10'6 (4.70-6.10); RED CELL DISTRIBUTION WIDTH 20.4 % (11.5-14.5); WHITE BLOOD COUNT 14.6 X10'3 (4.5-11.0)
[2018-02-22 04:27] LABS: ALBUMIN 3.1 G/DL (3.4-5.0); ANION GAP 4 (8-16); BLOOD UREA NITROGEN 24 MG/DL (7-18); BUN/CREATININE RATIO 32.4 (5.4-32.0); CALCIUM 8.4 MG/DL (8.5-10.1); CHLORIDE 102 MMOL/L (99-107); CREATININE 0.74 MG/DL (0.60-1.10); GLUCOSE 117 MG/DL (70-104); MAGNESIUM 2.1 MG/DL (1.5-2.4); PHOSPHORUS 2.7 MG/DL (2.3-4.5); POTASSIUM 4.6 MMOL/L (3.5-5.1); SODIUM 134 MMOL/L (135-145); TOTAL CARBON DIOXIDE 28.3 MMOL/L (24-32); eGFR > 90 ML/MIN
[2018-02-22] MEDS: insulin regular, human inj. 100 UNITS in normal saline 100ml IV soln 100 ML IV SCH ×2 (05:30)
[2018-02-22] MEDS: magnesium 2GM in 50ml NS 50 ML IV PRN (07:31)
[2018-02-22] MEDS: thiamine 100mg tablet PO SCH ×2 (07:31→19:47)
[2018-02-22] MEDS: atorvastatin 20mg tablet PO SCH (07:31)
[2018-02-22] MEDS: pantoprazole 40mg Tablet.DR PO SCH (07:32)
[2018-02-22] MEDS: folic acid 1mg tablet PO SCH (07:32)
[2018-02-22] MEDS: aspirin 325mg tablet, delayed-release (Ecotrin) PO SCH (07:32)
[2018-02-22] MEDS: docusate sod 100mg capsule PO SCH ×2 (07:32→19:46)
[2018-02-22] MEDS: mupirocin 2% nasal ointment 1gm UD NS SCH (07:33)
[2018-02-22] MEDS: metoprolol tartrate 25mg tablet PO SCH ×3 (08:00→19:50)
[2018-02-22] MEDS ORDERED: furosemide 40mg/4ml inj IV ONE (09:20)
[2018-02-22] MEDS: sodium chloride 0.45% 1,000 ML IV SCH (11:54)
[2018-02-22] MEDS: HYDROcodone/acetaminophen 10/325mg tab PO PRN (18:31)
[2018-02-22] MEDS: lisinopril 5mg tablet PO SCH (19:47)
[2018-02-23] VITALS (18 sets, daily range): BP systolic 107–166; BP diastolic 41–78
[2018-02-23] MEDS: HYDROcodone/acetaminophen 10/325mg tab PO PRN ×3 (01:21→23:54)
[2018-02-23 03:45] LABS: BASOPHILS % (AUTO) 0.2 % (0-1); EOSINOPHILS # (AUTO) 0.1 X10'3 (0-0.9); EOSINOPHILS % (AUTO) 1.1 % (0-6); HEMATOCRIT 25.1 % (42.0-52.0); HEMOGLOBIN 8.1 g/dl (14.0-17.9); LYMPHOCYTES # (AUTO) 2.1 X10'3 (1.1-4.8); LYMPHOCYTES % (AUTO) 19.7 % (21-51); MEAN CORPUSCULAR HEMOGLOBIN 25.8 PG (27.0-31.0); MEAN CORPUSCULAR HGB CONC 32.4 % (33.0-36.5); MEAN CORPUSCULAR VOLUME 79.7 FL (78-98); MEAN PLATELET VOLUME 9.8 FL (7.4-10.4); MONOCYTES # (AUTO) 1.2 X10'3 (0-0.9); MONOCYTES % (AUTO) 10.9 % (2-12); NEUTROPHILS # (AUTO) 7.2 X10'3 (1.8-7.7); NEUTROPHILS % (AUTO) 68.1 % (42-75); PLATELET COUNT 140 X10'3 (140-440); RED BLOOD COUNT 3.15 X10'6 (4.70-6.10); RED CELL DISTRIBUTION WIDTH 20.2 % (11.5-14.5); WHITE BLOOD COUNT 10.6 X10'3 (4.5-11.0)
[2018-02-23 04:00] LABS: ALBUMIN 2.9 G/DL (3.4-5.0); ANION GAP 7 (8-16); BLOOD UREA NITROGEN 17 MG/DL (7-18); BUN/CREATININE RATIO 31.5 (5.4-32.0); CALCIUM 8.3 MG/DL (8.5-10.1); CHLORIDE 101 MMOL/L (99-107); CREATININE 0.54 MG/DL (0.60-1.10); GLUCOSE 90 MG/DL (70-104); MAGNESIUM 1.9 MG/DL (1.5-2.4); PHOSPHORUS 2.8 MG/DL (2.3-4.5); SODIUM 137 MMOL/L (135-145); TOTAL CARBON DIOXIDE 28.8 MMOL/L (24-32); eGFR > 90 ML/MIN
[2018-02-23 04:47] LABS: ANISOCYTOSIS 2+; ELLIPTOCYTES 1+; HYPOCHROMASIA 1+; PLATELET ESTIMATE NORMAL
[2018-02-23] MEDS: insulin regular, human inj. 100 UNITS in normal saline 100ml IV soln 100 ML IV SCH ×2 (05:30)
[2018-02-23 07:16] LABS: ACTIVATED CLOTTING TIME 116 SEC (101-148)
[2018-02-23 07:16] LABS: ACT @ 1.70 U 350 SEC (193-297); ACT @ 2.84 U 501 SEC (260-420); BASELINE ACT 166 SEC (101-148)
[2018-02-23] MEDS: docusate sod 100mg capsule PO SCH ×2 (07:32→20:03)
[2018-02-23] MEDS: atorvastatin 20mg tablet PO SCH (07:32)
[2018-02-23] MEDS: pantoprazole 40mg Tablet.DR PO SCH (07:32)
[2018-02-23] MEDS: thiamine 100mg tablet PO SCH ×2 (07:32→20:03)
[2018-02-23] MEDS: folic acid 1mg tablet PO SCH (07:32)
[2018-02-23] MEDS ORDERED: lisinopril 10 MG tablet PO SCH (08:40)
[2018-02-23] MEDS ORDERED: magnesium Cl slow-release 64mg tablet PO PRN (08:50)
[2018-02-23] MEDS ORDERED: magnesium 4gm in 100ml NS 100 ML IV PRN (08:50)
[2018-02-23] MEDS ORDERED: potassium Cl 40MEQ/NS 500ml 500 ML IV PRN ×2 (08:50)
[2018-02-23] MEDS ORDERED: magnesium 1gm/100ml D5W IVPB 100 ML IV PRN (08:50)
[2018-02-23] MEDS ORDERED: potassium Cl 20 mEq SR tablet PO PRN ×2 (08:50)
[2018-02-23] MEDS ORDERED: lisinopril 20mg tablet PO ONE (09:10)
[2018-02-23] MEDS: metoprolol tartrate 12.5mg (1/2 tablet) PO SCH ×2 (09:15→20:03)
[2018-02-23] MEDS: magnesium Cl slow-release 64mg tablet PO SCH (20:03)
[2018-02-23] MEDS: potassium Cl 20 mEq SR tablet PO SCH (20:03)
[2018-02-24 03:00] VITALS: BP 129/63
[2018-02-24 05:28] LABS: BASOPHILS % (AUTO) 0.2 % (0-1); EOSINOPHILS # (AUTO) 0.1 X10'3 (0-0.9); EOSINOPHILS % (AUTO) 0.7 % (0-6); HEMATOCRIT 26.3 % (42.0-52.0); HEMOGLOBIN 8.5 g/dl (14.0-17.9); LYMPHOCYTES # (AUTO) 2.6 X10'3 (1.1-4.8); LYMPHOCYTES % (AUTO) 26.7 % (21-51); MEAN CORPUSCULAR HGB CONC 32.4 % (33.0-36.5); MEAN CORPUSCULAR VOLUME 80.2 FL (78-98); MEAN PLATELET VOLUME 10.8 FL (7.4-10.4); MONOCYTES # (AUTO) 1.1 X10'3 (0-0.9); MONOCYTES % (AUTO) 10.9 % (2-12); NEUTROPHILS % (AUTO) 61.5 % (42-75); PLATELET COUNT 153 X10'3 (140-440); RED BLOOD COUNT 3.29 X10'6 (4.70-6.10); RED CELL DISTRIBUTION WIDTH 19.6 % (11.5-14.5); WHITE BLOOD COUNT 9.8 X10'3 (4.5-11.0)
[2018-02-24 05:39] LABS: ALBUMIN 2.8 G/DL (3.4-5.0); ANION GAP 6 (8-16); BLOOD UREA NITROGEN 13 MG/DL (7-18); CALCIUM 8.3 MG/DL (8.5-10.1); CHLORIDE 102 MMOL/L (99-107); CREATININE 0.59 MG/DL (0.60-1.10); GLUCOSE 94 MG/DL (70-104); MAGNESIUM 1.8 MG/DL (1.5-2.4); POTASSIUM 4.2 MMOL/L (3.5-5.1); SODIUM 137 MMOL/L (135-145); TOTAL CARBON DIOXIDE 28.7 MMOL/L (24-32); eGFR > 90 ML/MIN
[2018-02-24 06:00] VITALS: BP 124/57
[2018-02-24 06:26] LABS: ANISOCYTOSIS 2+; LARGE PLATELETS FEW; PLATELET ESTIMATE NORMAL; POLYCHROMASIA 1+
[2018-02-24] MEDS: potassium Cl 20 mEq SR tablet PO SCH (06:34)
[2018-02-24 06:48] VITALS: BP 124/57
[2018-02-24] MEDS: folic acid 1mg tablet PO SCH (07:47)
[2018-02-24] MEDS: pantoprazole 40mg Tablet.DR PO SCH (07:48)
[2018-02-24] MEDS: atorvastatin 20mg tablet PO SCH (07:49)
[2018-02-24] MEDS: thiamine 100mg tablet PO SCH (07:49)
[2018-02-24] MEDS: magnesium Cl slow-release 64mg tablet PO SCH (07:49)
[2018-02-24] MEDS: docusate sod 100mg capsule PO SCH (07:49)
[2018-02-24] MEDS: HYDROcodone/acetaminophen 10/325mg tab PO PRN (07:58)
[2018-02-24] MEDS ORDERED: aspirin 81mg tablet.DR PO SCH (08:00)
[2018-02-24] MEDS ORDERED: K and/or MAG REPLACEMENT MC SCH (08:00)
[2018-02-24] MEDS: metoprolol tartrate 12.5mg (1/2 tablet) PO SCH (08:00)
[2018-02-24] MEDS ORDERED: lisinopril 20mg tablet PO SCH (08:00)
[2018-02-24] MEDS ORDERED: HYDR-569 PO (08:45)
[2018-02-24] MEDS ORDERED: ASPI-1071 PO (08:45)
== END 2018-02-24 10:21 | disposition home or self-care (01) | DRG 216 ==
LOC: ER 10:25 → ED HOLD 14:30 → PCU 3S 16:34 → CICU 2S 02-20 07:50 → PCU 3S 02-23 14:24
PROVIDERS: ADMIT Family Medicine; ATTEND Thoracic Surgery (Cardiothoracic Vascular Surgery)
PROC: 4A023N7 Measurement of Cardiac Sampling and Pressure, Left Heart, Percutaneous Approach (ICD-10-PCS; 2018-02-18)
PROC: B2111ZZ Fluoroscopy of Multiple Coronary Arteries using Low Osmolar Contrast (ICD-10-PCS; 2018-02-18)
PROC: B246ZZ4 Ultrasonography of Right and Left Heart, Transesophageal (ICD-10-PCS; 2018-02-20)
PROC: 5A1221Z Performance of Cardiac Output, Continuous (ICD-10-PCS; 2018-02-20)
PROC: 02HV33Z Insertion of Infusion Device into Superior Vena Cava, Percutaneous Approach (ICD-10-PCS; 2018-02-20)
PROC: 02RF08Z Replacement of Aortic Valve with Zooplastic Tissue, Open Approach (ICD-10-PCS; principal; 2018-02-20 06:59)
PROC: 5A09357 Assistance with Respiratory Ventilation, Less than 24 Consecutive Hours, Continuous Positive Airway Pressure (ICD-10-PCS; 2018-02-21)
DX: I35.0 Nonrheumatic aortic (valve) stenosis (principal); I50.33 Acute on chronic diastolic (congestive) heart failure; Z68.42 Body mass index [BMI] 45.0-49.9, adult; F10.20 Alcohol dependence, uncomplicated; E66.01 Morbid (severe) obesity due to excess calories; F17.210 Nicotine dependence, cigarettes, uncomplicated; E27.9 Disorder of adrenal gland, unspecified; F32.9 Major depressive disorder, single episode, unspecified; H90.2 Conductive hearing loss, unspecified; L28.0 Lichen simplex chronicus; D64.9 Anemia, unspecified; E78.5 Hyperlipidemia, unspecified; E88.81 Metabolic syndrome and other insulin resistance; G47.33 Obstructive sleep apnea (adult) (pediatric); I11.0 Hypertensive heart disease with heart failure; J44.9 Chronic obstructive pulmonary disease, unspecified; Q24.8 Other specified congenital malformations of heart; Z99.81 Dependence on supplemental oxygen; Z79.899 Other long term (current) drug therapy; Z87.11 Personal history of peptic ulcer disease; Z82.49 Family history of ischemic heart disease and other diseases of the circulatory system; Z82.5 Family history of asthma and other chronic lower respiratory diseases; Z71.6 Tobacco abuse counseling; Z71.41 Alcohol abuse counseling and surveillance of alcoholic
CPT/HCPCS: 0232T; 93312; 93325; 93454; 96374; 99285; 36415; 36600; 71045; 71046; 80048; 80053; 80061; 82330; 82435; 82803; 82947; 82948; 83036; 83735; 83880; 84100; 84132; 84295; 84484; 85018; 85025; 85027; 85347; 85384; 85610; 85730; 86885; 86900; 86901; 86920; 87070; 93005; 93880; 93970; 94002; 94003; 94010; 94640; 94667; 94668; 94760; 97110; 97116; 97162; 97530; 99152; 99153; A4620; A6213; A6255; A6257; A6258; A6402; A6449; A7000; A7048; C1713; C1751; C1769; J0280; J0690; J1644; J1650; J1815; J1940; J2001; J2060; J2150; J2250; J2270; J2370; J2405; J2704; J2720; J3010; J3370; J3475; J3480; J3490; J7030; J7120; P9045; P9047; Q9967

== ENCOUNTER 2019-02-26 09:42 | Day surgery (SDC) | payer MEDICARE, OTHER ==
[~2019-02-26] VITALS: Ht 175.3 cm; Wt 131.8 kg
[~2019-02-26 09:42] MED LIST: ALB0.5UD IH; ASPI-1071 PO; DOCU-329 PO; FERR324T2 PO; HYDR-4383 PO; LISI-600 PO; OMEG1CAP13 PO; PANT40TA4 PO; RANI300C PO; SIMV40TA PO; SUCR1TAB PO
[2019-02-26 09:45] VITALS: BP 152/76
[2019-02-26] MEDS ORDERED: MIDAZolam 5mg/5ml vial ONE (10:04)
[2019-02-26] MEDS ORDERED: fentaNYL/PF 50MCG/1 ML 2ML syringe ONE (10:04)
[2019-02-26] MEDS ORDERED: LIDOcaine Viscous 15ml cup ONE (10:05)
[2019-02-26] MEDS ORDERED: MULT-933 PO (10:10)
[2019-02-26] MEDS ORDERED: ASPI-611 PO (10:10)
[2019-02-26] MEDS ORDERED: CHLO25CA10 PO (10:11)
[2019-02-26 10:34] VITALS: BP 139/70
[2019-02-26 10:44] VITALS: BP 124/65
[2019-02-26 10:54] VITALS: BP 132/70
== END 2019-02-26 11:20 | disposition home or self-care (01) ==
LOC: GI LAB 09:42
PROVIDERS: ATTEND Internal Medicine Gastroenterology
DX: R10.13 Epigastric pain (principal); K29.50 Unspecified chronic gastritis without bleeding; K22.8 Other specified diseases of esophagus; K20.8 Other esophagitis; K22.70 Barrett's esophagus without dysplasia
CPT/HCPCS: 43239; G0500; J2250; J3010; J7040; 88305; 88342; 99152; A4620

== ENCOUNTER 2020-10-02 14:48 | Emergency (ER) | payer OTHER, MEDICARE ==
[~2020-10-02] VITALS: Ht 175.3 cm; Wt 120.5 kg
[~2020-10-02 14:48] MED LIST changes: -ASPI-1071 PO; +ASPI-611 PO; +CHLO25CA10 PO; -DOCU-329 PO; +DOCU250C96 PO; -FERR324T2 PO; -HYDR-4383 PO; -LISI-600 PO; +LISI20TA28 PO; +MULT-933 PO; -PANT40TA4 PO; +PANT40TA54 PO; -RANI300C PO; -SIMV40TA PO; -SUCR1TAB PO
[2020-10-02] MEDS ORDERED: normal saline 1000ML IV soln IVB ONE (15:00)
[2020-10-02 15:06] VITALS: BP 155/68
[2020-10-02 15:31] LABS: ALBUMIN 3.6 G/DL (3.4-5.0); ANION GAP 9 (8-16); BLOOD UREA NITROGEN 8 MG/DL (7-18); BUN/CREATININE RATIO 15.1 (5.4-32.0); CALCIUM 9.1 MG/DL (8.5-10.1); CHLORIDE 88 MMOL/L (99-107); CREATININE 0.53 MG/DL (0.60-1.10); GLUCOSE 90 MG/DL (70-104); POTASSIUM 4.8 MMOL/L (3.5-5.1); SODIUM 124 MMOL/L (135-145); eGFR > 90 ML/MIN
[2020-10-02] MEDS ORDERED: LISI40TA13 PO (15:40)
[2020-10-02] MEDS ORDERED: DILT180C87 PO (15:40)
[2020-10-02] MEDS ORDERED: CHLO25TA10 PO (15:40)
[2020-10-02] MEDS ORDERED: SIMV-45 PO (15:40)
[2020-10-02] MEDS ORDERED: ondansetron/PF 4mg/2ml inj IV PRN (15:45)
[2020-10-02] MEDS ORDERED: magnesium 2GM in 50ml NS 50 ML IV PRN (15:45)
[2020-10-02] MEDS ORDERED: magnesium Cl slow-release 64mg tablet PO PRN (15:45)
[2020-10-02] MEDS ORDERED: magnesium hydroxide 30ml (MOM) UD suspension PO PRN (15:45)
[2020-10-02] MEDS ORDERED: magnesium 4gm in 100ml NS 100 ML IV PRN (15:45)
[2020-10-02] MEDS ORDERED: potassium Cl 40MEQ/1/2NS 520ml 520 ML IV PRN ×2 (15:45)
[2020-10-02] MEDS ORDERED: bisacodyl 10mg suppository rectal RC PRN (15:45)
[2020-10-02] MEDS ORDERED: potassium Cl 20 mEq SR tablet PO PRN ×2 (15:45)
[2020-10-02] MEDS ORDERED: HYDROcodone/acetaminophen 5mg/325mg tablet PO PRN (15:45)
[2020-10-02] MEDS ORDERED: acetaminophen 325mg tablet PO PRN ×2 (15:45)
[2020-10-02] MEDS ORDERED: mag hydrox/Alum hydrox/simeth 30ml oral suspension PO PRN (15:45)
[2020-10-02] MEDS ORDERED: HYDROcodone/acetaminophen 10/325mg tab PO PRN (15:45)
[2020-10-02] MEDS ORDERED: metoclopramide 5 mg/ml inj IV PRN (15:45)
[2020-10-02] MEDS ORDERED: normal saline 1000ml 1,000 ML IV SCH (15:45)
--- NOTE | 2020-10-02 16:21 | NUR ---
PT'S FAMILY IN ROOM AND HAVE DECIDED THAT THEY DONT WANT THE PT ADMITTED TO THE HOSPITAL. DR SLOAN HAS AGREED AND IS DISCHARGING HIM. PT TO F/U TOMORROW TO GET HIS SODIUM RECHECKED. WILL HAVE TO GET A LAB ORDER FROM HIS PMD FOR THAT. THEY UNDERSTAND AND WILL CALL HIS PMD FOR THAT ORDER.
[2020-10-02] MEDS ORDERED: K and/or MAG REPLACEMENT MC SCH (20:00)
[2020-10-02] MEDS ORDERED: temazepam 15mg capsule PO PRN (21:00)
[2020-10-02] MEDS ORDERED: atorvastatin 20mg tablet PO SCH (21:00)
[2020-10-03] MEDS ORDERED: pantoprazole 40mg Tablet.DR PO SCH (07:30)
[2020-10-03] MEDS ORDERED: enoxaparin 40mg/0.4ml syringe SUBCUT SCH (08:00)
[2020-10-03] MEDS ORDERED: aspirin 81mg tablet.DR PO SCH (08:00)
[2020-10-03] MEDS ORDERED: lisinopril 20mg tablet PO SCH (08:00)
[2020-10-03] MEDS ORDERED: diltiazem CD 180mg cap (once-daily) PO SCH (08:00)
== END 2020-10-02 16:28 | disposition home or self-care (01) ==
LOC: ER 14:48
DX: E87.1 Hypo-osmolality and hyponatremia (principal); R51.9 Headache, unspecified; K59.00 Constipation, unspecified; I48.91 Unspecified atrial fibrillation; I10 Essential (primary) hypertension; J44.9 Chronic obstructive pulmonary disease, unspecified; F17.200 Nicotine dependence, unspecified, uncomplicated; Z98.890 Other specified postprocedural states; Z72.89 Other problems related to lifestyle; Z79.82 Long term (current) use of aspirin; Z79.899 Other long term (current) drug therapy
CPT/HCPCS: 36415; 80048; 99283

== ENCOUNTER 2020-10-27 12:34 | Outpatient (CLI) | payer MEDICARE, OTHER ==
[~2020-10-27 12:34] MED LIST changes: -ALB0.5UD IH; -CHLO25CA10 PO; +CHLO25TA10 PO; +DILT180C87 PO; -DOCU250C96 PO; -LISI20TA28 PO; +LISI40TA13 PO; -MULT-933 PO; -OMEG1CAP13 PO; +SIMV-45 PO
== END 2020-10-27 23:59 | disposition home or self-care (01) ==
LOC: RAD 12:34
PROVIDERS: ATTEND Family Medicine
DX: M48.061 Spinal stenosis, lumbar region without neurogenic claudication (principal); M85.89 Other specified disorders of bone density and structure, multiple sites; R60.9 Edema, unspecified
CPT/HCPCS: 72148

== ENCOUNTER 2020-10-30 09:36 | Emergency (ER) | payer MEDICARE, OTHER ==
[~2020-10-30] VITALS: Ht 175.3 cm; Wt 115.9 kg
[2020-10-30] MEDS ORDERED: aspirin 81mg tab.chew PO ONE (10:40)
[2020-10-30] MEDS: normal saline 1000ML IV soln IVB ONE ×2 (10:40→11:00)
[2020-10-30 11:20] LABS: BASOPHILS % (AUTO) 0.3 % (0-1); EOSINOPHILS % (AUTO) 0.2 % (0-6); HEMATOCRIT 36.6 % (42.0-52.0); HEMOGLOBIN 12.2 g/dl (14.0-17.9); LYMPHOCYTES % (AUTO) 13.4 % (21-51); MEAN CORPUSCULAR HEMOGLOBIN 27.5 PG (27.0-31.0); MEAN CORPUSCULAR HGB CONC 33.2 g/dL (33.0-36.5); MEAN CORPUSCULAR VOLUME 82.7 FL (78-98); MEAN PLATELET VOLUME 7.7 FL (7.4-10.4); MONOCYTES # (AUTO) 0.5 X10'3 (0-0.9); MONOCYTES % (AUTO) 6.6 % (2-12); NEUTROPHILS # (AUTO) 6.2 X10'3 (1.8-7.7); NEUTROPHILS % (AUTO) 79.5 % (42-75); PLATELET COUNT 286 X10'3 (140-440); RED BLOOD COUNT 4.43 X10'6 (4.70-6.10); WHITE BLOOD COUNT 7.8 X10'3 (4.5-11.0)
[2020-10-30 11:33] LABS: ALANINE AMINOTRANSFERASE 77 U/L (12-78); ALBUMIN 2.5 G/DL (3.4-5.0); ALBUMIN/GLOBULIN RATIO 0.6 (1.1-1.5); ALKALINE PHOSPHATASE 277 IU/L (46-116); ANION GAP 10 (8-16); ASPARTATE AMINO TRANSFERASE 33 U/L (10-37); BILIRUBIN,TOTAL 0.5 MG/DL (0.1-1.0); BLOOD UREA NITROGEN 8 MG/DL (7-18); BUN/CREATININE RATIO 15.4 (5.4-32.0); CALCIUM 8.8 MG/DL (8.5-10.1); CHLORIDE 98 MMOL/L (99-107); CREATININE 0.52 MG/DL (0.60-1.10); GLUCOSE 98 MG/DL (70-104); POTASSIUM 3.7 MMOL/L (3.5-5.1); SODIUM 132 MMOL/L (135-145); TOTAL CARBON DIOXIDE 23.8 MMOL/L (24-32); eGFR > 90 ML/MIN
[2020-10-30 11:39] LABS: MAGNESIUM 1.8 MG/DL (1.5-2.4)
[2020-10-30 11:54] VITALS: BP 146/75
[2020-10-30] MEDS ORDERED: METH-797 PO (12:53)
== END 2020-10-30 13:25 | disposition home or self-care (01) ==
LOC: ER 09:37
DX: R55 Syncope and collapse (principal); R42 Dizziness and giddiness; M54.5 Low back pain; I48.91 Unspecified atrial fibrillation; I10 Essential (primary) hypertension; J44.9 Chronic obstructive pulmonary disease, unspecified; Z72.89 Other problems related to lifestyle; Z79.82 Long term (current) use of aspirin; Z79.899 Other long term (current) drug therapy; Z95.5 Presence of coronary angioplasty implant and graft
CPT/HCPCS: 36415; 71045; 80053; 83735; 83880; 84484; 85025; 93005; 99285; J7030

== ENCOUNTER 2021-01-01 12:47 | Outpatient (CLI) | payer OTHER ==
[~2021-01-01 12:47] MED LIST changes: +METH-797 PO
[2021-01-01] MEDS ORDERED: GADOTERATE MEGLUMINE 7.5 MMOL/15 ML VIAL IV ONE (18:16)
== END 2021-01-01 23:59 | disposition home or self-care (01) ==
LOC: RAD 12:47
DX: M47.816 Spondylosis without myelopathy or radiculopathy, lumbar region (principal); M46.26 Osteomyelitis of vertebra, lumbar region; M46.46 Discitis, unspecified, lumbar region; M48.07 Spinal stenosis, lumbosacral region; M25.78 Osteophyte, vertebrae
CPT/HCPCS: 72158; A9575

== ENCOUNTER 2023-09-28 13:51 | Emergency (ER) | payer OTHER ==
[~2023-09-28] VITALS: Ht 175.3 cm; Wt 134.0 kg
[~2023-09-28 13:51] MED LIST changes: +DILT180C76 PO; -DILT180C87 PO
[2023-09-28] MEDS: amox tr/potassium clavulanate 875/125mg TAB PO ONE (15:32)
[2023-09-28] MEDS: HYDROcodone/acetaminophen 10/325mg tab PO ONE (15:33)
[2023-09-28] MEDS: LIDOcaine 1% W/epiNEPHrine 1:100,000 20ml vial IJ ONE (16:16)
[2023-09-28] MEDS: BUPIVAcaine/PF 2.5 mg/ml (0.25%) 30ml vial IJ ONE (16:16)
[2023-09-28] MEDS ORDERED: AMOX-117 PO (16:28)
[2023-09-28 16:32] VITALS: BP 102/50; PULSE 60; RESP 16; TEMP 97.9; O2SAT 96
== END 2023-09-28 16:35 | disposition home or self-care (01) ==
LOC: ER 13:52
DX: K04.7 Periapical abscess without sinus (principal); K02.9 Dental caries, unspecified; I10 Essential (primary) hypertension; J44.9 Chronic obstructive pulmonary disease, unspecified; Z79.2 Long term (current) use of antibiotics; Z79.899 Other long term (current) drug therapy
CPT/HCPCS: 41800; 99284; J3490